=== PATIENT | male | born 1975 | race Hispanic/Latino ===

== ENCOUNTER 2022-03-14 13:25 | Emergency (ER) | payer OTHER, SELFPAY ==
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
[2022-03-14 13:31] VITALS: BP 152/87; PULSE 73; RESP 18; TEMP 36.4; O2SAT 99
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
== END 2022-03-14 14:49 | disposition home or self-care (01) ==
LOC: ANHED 14:30
PROVIDERS: Emergency Provider Nurse Practitioner Family
DX: S16.1XXA Strain of muscle, fascia and tendon at neck level, initial encounter (principal); V49.40XA Driver injured in collision with unspecified motor vehicles in traffic accident, initial encounter
CPT/HCPCS: 72040; 99283

== ENCOUNTER 2023-06-14 09:13 | Emergency (ER) | payer SELFPAY ==
--- NOTE | ~2023-06-14 | XR_ITS ---
Left Knee Technique: AP, lateral, and sunrise views were obtained. Clinical History: Pain Findings: No fracture or dislocation is seen. Moderate degenerative change of the medial compartment noted, prominent medial joint osteophytes. There is mild degenerative change at the patellofemoral an d lateral compartment.. There is heterotopic ossification versus loose bodies at Hoffa's fat pad.. No joint effusion is seen. Impression: Moderate degenerative change of the medial compartment, and mild degenerative change of the lateral a nd patellofemoral compartment. Intra-articular loose bodies versus heterotopic ossification in Hoffa's fat pad region. Reviewed, dictated and finalized at location . Impression: Moderate degenerative change of the medial compartment, and mild degenerative c hange of the lateral and patellofemoral compartment. Intra-articular loose bodies versus heterotopic ossification in Hoffa's fat pad region.
[2023-06-14 09:27] VITALS: BP 136/80; PULSE 62; RESP 16; TEMP 36.6; O2SAT 98
--- NOTE | 2023-06-14 09:40 | ED.LOWEXIN ---
HPI - Extremity Injury (Lower) General Chief Complaint: Extremity Injury, Lower Stated Complaint: Left Leg/Knee Pain History of Present Illness HPI Narrative: Pt is a 48 y/o male, presents to with ongoing left knee pain that swells in the popliteal region from time to time, without recollection of injury. He has no calf pain or swelling and he denies personal or family hx of DVT. He has not attempted any modfiying factors. he has no other complaints today Related Data Allergies Allergy/AdvReac Type Severity Reaction Status Date / Time No Known Allergies Allergy Unknown Verified 06/14/23 09:24 Review of Systems Musculoskeletal: Musculoskeletal: Reports no additional musculoskeletal complaints and Reports as per HPI Hematologic/Lymphatic: Comments: denies personal or family hx of DVT PMFSH Social History Social History Smoking status: Never smoker Alcohol intake: current Exam Const: General: healthy appearing, no acute distress and alert Nutritional Appearance: well nourished Orientation/consciousness: patient oriented x3 Limitations: no limitations HENMT: Head: normal to inspection Ears: external ears normal and TM's normal bilaterally Mouth: Yes Normal oral and palatal mucosa present Teeth and gingiva: dentition normal Eyes: Conjunctivae: conjunctivae normal Pupils: Equal, round and reactive pupils present EOM: EOMs intact bilaterally Neck: Neck: normal visual inspection, no lymphadenopathy and no meningeal signs Resp: Effort & Inspection: normal respiratory effort Auscultation: clear to auscultation bilaterally Cardio: Rate: regular rate Rhythm: regular rhythm Skin: General skin exam: normal color Rashes: no rashes Wounds: no wounds Neuro: General: patient oriented x3, moves all extremities, no meningeal signs, no focal motor deficits and CN's II-XI intact bilaterally Cranial nerves: Yes Nystagmus not present Speech: normal speech Gait exam (Neuro): Normal gait present Extrem: General: normal to inspection Other: pt is TTP over the left popliteal region. Mild swelling noted, no erythema, fluctuance or palpable cord No calf TTP, no palpable cord. The anterior left knee is non TTP. No laxity with valgus or varus stress Distal PMS intact Psych: Mental Status: mental status grossly normal Course Course Emergency Course: left knee plain film Level of Care: Express Care Visit ([id number]) Vital Signs Vital signs: Vital Signs Temperature 36.6 C 06/14/23 09:27 Pulse Rate 62 06/14/23 09:27 Respiratory Rate 16 06/14/23 09:27 Blood Pressure 136/80 06/14/23 09:27 Pulse Oximetry 98 06/14/23 09:27 Oxygen Delivery Room Air 06/14/23 09:27 Temperature 36.6 C 06/14/23 09:27 Pulse Rate 62 06/14/23 09:27 Respiratory Rate 16 06/14/23 09:27 Blood Pressure 136/80 06/14/23 09:27 Pulse Oximetry 98 06/14/23 09:27 Oxygen Delivery Room Air 06/14/23 09:27 MDM - Extremity Injury (Lower) MDM Narrative Medical decision making narrative: imaging consistent with DJD, medial compartment narrowing, no effusion noted. Plan to treat for suspected Mckinney's cyst, with BONG wrap, short steroid course, Ortho FU if symptoms are not improving in one week Differential Diagnosis Differential diagnosis: Likely other (OA, internal derangement of the knee, Mckinney's cyst) Discharge Plan Discharge Clinical Impression: Primary localized osteoarthritis of left knee Patient Disposition: Home, Self-Care Condition: Stable Instructions: Antibiotic Form, Mckinney Cyst (ED) Additional Instructions: REST, ICE, ELEVATE THE KNEE, WEAR BONG WRAP FOR SUPPORT AND GENTLE COMPRESSION, COMPLETE STEROIDS PRESCRIBED. SEE ORTHO FOR FOLLOW UP IF SYMPTOMS ARE NOT RESOLVING IN 7-10 DAYS. Prescriptions: New prednisone 20 mg tablet 40 mg PO DAILY 5 Days Qty: 10 0RF Follow-up/Referrals: Wilber Peters MD [Physician] - [place]
== END 2023-06-14 10:20 | disposition home or self-care (01) ==
PROVIDERS: Emergency Provider Nurse Practitioner Family; PCP Physician Assistant
DX: M17.12 Unilateral primary osteoarthritis, left knee (principal)
CPT/HCPCS: 73564; 99213; G0463